=== PATIENT | female | born 1990 | race Caucasian/White ===

== ENCOUNTER 2022-08-02 16:20 | Emergency (ER) | payer MEDICAID ==
[~2022-08-02] VITALS: Ht 167.6 cm; Wt 45.4 kg
[2022-08-02 16:20] VITALS: BP_SYST 113
--- NOTE | 2022-08-02 16:25 | NUR ---
Patient triaged and placed in waiting room. VSS and patient appears in no acute distress at this time. Accompanied by MOTHER, awaiting available bed, and MD notified of need for MSE.
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
--- NOTE | 2022-08-02 18:11 | NUR ---
PT LEFT WITHOUT BEING SEEN
== END 2022-08-02 18:11 | disposition left against medical advice (07) ==
LOC: SED 16:20
DX: M54.2 Cervicalgia (principal); Z53.21 Procedure and treatment not carried out due to patient leaving prior to being seen by health care provider
CPT/HCPCS: 99281

== ENCOUNTER 2022-08-29 16:19 | Emergency (ER) | payer MEDICAID ==
[~2022-08-29] VITALS: Ht 170.2 cm; Wt 47.6 kg
[2022-08-29 16:28] VITALS: BP_SYST 100; PULSE 122; RESP 18; TEMP 97.5; O2SAT 99
--- NOTE | 2022-08-29 16:50 | NUR ---
ER at bedside examining patient.
[2022-08-29] MEDS ORDERED: ONDANSETRON 4 MG ODT TAB PO ONE (17:00)
[2022-08-29] MEDS ORDERED: KETOROLAC TROMETHAMINE 30 MG VIAL IM ONE (17:00)
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
--- NOTE | 2022-08-29 17:16 | NUR ---
Pt to radiology ambulates with steady gait.
[2022-08-29] MEDS ORDERED: ONDA-8 TL (18:55)
[2022-08-29] MEDS ORDERED: DICL20GE TP (18:55)
[2022-08-29] MEDS ORDERED: IBUP-1971 PO (18:55)
--- NOTE | 2022-08-29 19:13 | NUR ---
Patient given written and verbal discharge instructions and verbalizes understanding. ER MD discussed with patient the results and treatment provided. Patient in stable condition. ID arm band removed. IV catheter removed intact and dressing applied, no active bleeding. Rx of IBUPROFEN ZOFRAN, VOLTAREN given. Patient educated on pain management and to follow up with PMD. Opportunity for questions provided and answered. Medication side effect fact sheet provided.
[2022-08-29 19:14] VITALS: BP_SYST 100; PULSE 122; RESP 18; TEMP 97.5; O2SAT 99
== END 2022-08-29 19:14 | disposition home or self-care (01) ==
LOC: SED 16:19
DX: S06.0X0A Concussion without loss of consciousness, initial encounter (principal); M54.2 Cervicalgia; R11.0 Nausea; Z79.899 Other long term (current) drug therapy; Y04.8XXA Assault by other bodily force, initial encounter; Y93.89 Activity, other specified; Y92.89 Other specified places as the place of occurrence of the external cause; Y99.8 Other external cause status
CPT/HCPCS: 99285; 70450; 72125; 76376; 96372; Q0162; J1885